=== PATIENT | male | born 1935 | race Caucasian/White ===

== ENCOUNTER 2019-10-24 11:55 | Inpatient (IN) | payer MEDICARE ==
[~2019-10-24] VITALS: Ht 177.8 cm; Wt 109.0 kg
[~2019-10-24 11:55] MED LIST: APIX5TAB PO; HYDROCHLOROTH12.5 MG PO; LEVO150T5 PO; MELA10TA PO; RISP0.5T3 PO; VITAMIN B12 PO
[2019-10-24] MEDS ORDERED: LACTATED RINGERS 1,000 ML IV SCH (12:19)
[2019-10-24] MEDS ORDERED: CHLORHEXIDINE 15 ML UDC MM STA (12:21)
[2019-10-24 12:28] VITALS: BP 127/82
[2019-10-24 12:42] LABS: BASOPHILS # (AUTO) 0.03 x10^3/uL (0-0.1); BASOPHILS % (AUTO) 1 % (0-1); EOSINOPHILS % (AUTO) 1 % (1-7); LYMPHOCYTES # (AUTO) 2.14 x10^3/uL (1-3.4); LYMPHOCYTES % (AUTO) 31 % (22-44); MD NO; MEAN CORPUSCULAR VOLUME 93.8 fL (81-97); MEAN PLATELET VOLUME 8.7 fL (7.4-10.4); MONOCYTES # (AUTO) 0.67 x10^3/uL (0.2-0.8); MONOCYTES % (AUTO) 10 % (2-9); NEUTROPHILS # (AUTO) 3.89 x10^3/uL (1.8-6.8); NEUTROPHILS % (AUTO) 57 % (42-75); PLATELET COUNT 165 x10^3/uL (130-400); RED BLOOD COUNT 4.96 x10^6/uL (4.38-5.82); RED CELL DISTRIBUTION WIDTH 14.9 % (9.4-14.8)
[2019-10-24] MEDS ORDERED: LIDOCAINE-MPF 1%, 2ML ONE (12:43)
[2019-10-24] MEDS ORDERED: CHLORHEXIDINE 15 ML UDC ONE (12:44)
[2019-10-24 12:53] LABS: ALBUMIN 3.8 g/dL (3.4-5.0); ANION GAP 4 mmol/L (5-15); CALCIUM 9.5 mg/dL (8.5-10.1); CHLORIDE 106 mmol/L (98-107)
[2019-10-24 12:57] LABS: ALANINE AMINOTRANSFERASE 22 U/L (12-78); ALKALINE PHOSPHATASE 81 U/L (45-117); BILIRUBIN,TOTAL 0.9 mg/dL (0.2-1.0); TOTAL PROTEIN 7.4 g/dL (6.4-8.2)
[2019-10-24] MEDS ORDERED: LIDOCAINE-MPF 1%, 2ML INFIL ONE (13:00)
[2019-10-24] MEDS ORDERED: CHLORHEXIDINE 15 ML UDC MM ONE (13:30)
[2019-10-24] MEDS ORDERED: HEPARIN 1,000 UNITS/ML, 10ML ONE (14:11)
[2019-10-24] MEDS ORDERED: PAPAVERINE 30 MG/ML, 2ML ONE (14:11)
[2019-10-24] MEDS ORDERED: PROTAMINE SULFATE 10 MG/ML, 5ML ONE (14:11)
[2019-10-24] MEDS ORDERED: BUPIVACAINE/PF-EPI 0.5% 1:200K ONE (14:11)
[2019-10-24] MEDS ORDERED: THROMBIN 20,000 UNIT VIAL TP ONE (14:11)
[2019-10-24] MEDS ORDERED: LIDOCAINE 1%, 20ML ONE (14:12)
[2019-10-24] MEDS ORDERED: ROCURONIUM 10 MG/ML,10ML ONE (14:53)
[2019-10-24] MEDS ORDERED: PROPOFOL 10 MG/ML, 20ML ONE (14:53)
[2019-10-24] MEDS ORDERED: ONDANSETRON 2MG/ML, 2ML ONE (14:53)
[2019-10-24] MEDS ORDERED: SUCCINYLCHOLINE 20 MG/ML, 10ML ONE (14:53)
[2019-10-24] MEDS ORDERED: VASOPRESSIN 20 UNIT/ML, 1ML ONE (14:53)
[2019-10-24] MEDS ORDERED: EPHEDRINE 50 MG/ML, 1ML ONE (14:53)
[2019-10-24] MEDS ORDERED: CEFAZOLIN 1,000 MG ONE (14:53)
[2019-10-24] MEDS ORDERED: BUPIVACAINE/PF-EPI 0.5% 1:200K INFIL ONE (15:25)
[2019-10-24] MEDS ORDERED: HEPARIN 1,000 UNITS/ML, 10ML IV ONE (15:26)
[2019-10-24] MEDS ORDERED: FENTANYL PF 250 MCG/5ML ONE (16:24)
[2019-10-24] MEDS ORDERED: FENTANYL PF 100 MCG/2ML ONE (16:58)
[2019-10-24] MEDS ORDERED: OXYcodone 5 MG/5 ML ORAL.SOL UDC ONE ×2 (16:58→18:16)
[2019-10-24] MEDS ORDERED: ASPIRIN 325 MG TABLET ONE (16:58)
[2019-10-24] MEDS ORDERED: ONDANSETRON 2MG/ML, 2ML IV PRN ×2 (17:00→20:00)
[2019-10-24] MEDS ORDERED: PROMETHAZINE 25 MG/ML, 1ML IV PRN (17:00)
[2019-10-24] MEDS ORDERED: PROMETHAZINE 12.5 MG SUPP PR PRN (17:00)
[2019-10-24] MEDS ORDERED: MEPERIDINE/PF 25MG/ML,1ML IVPush PRN (17:00)
[2019-10-24] MEDS ORDERED: MIDAZOLAM 1 MG/ML, 2ML IV PRN (17:00)
[2019-10-24] MEDS ORDERED: DIAZEPAM 5 MG/ML, 2ML IVPush PRN (17:00)
[2019-10-24] MEDS ORDERED: HALOPERIDOL 5 MG/ML IV PRN (17:00)
[2019-10-24] MEDS ORDERED: LABETALOL 5MG/ML, 20ML IV PRN (17:00)
[2019-10-24] MEDS ORDERED: ONDANSETRON ODT 8 MG PO PRN (17:00)
[2019-10-24] MEDS ORDERED: EPHEDRINE 50 MG/ML, 1ML IVPush PRN (17:00)
[2019-10-24] MEDS ORDERED: ALBUTEROL SULFATE 2.5 MG/3 ML NPPB PRN (17:00)
[2019-10-24] MEDS ORDERED: hydrALAzine 20 MG/ML, 1ML IV PRN ×2 (17:00→20:00)
[2019-10-24] MEDS: FENTANYL PF 100 MCG/2ML IV PRN ×4 (17:00→17:40)
[2019-10-24] MEDS ORDERED: HYDROmorphone 2 MG/ML, 1ML IVPush PRN (17:00)
[2019-10-24] MEDS ORDERED: ACETAMINOPHEN 325 MG TABLET PO PRN ×2 (17:00→20:00)
[2019-10-24] MEDS ORDERED: METOPROLOL 1 MG/ML, 5ML ONE (17:00)
[2019-10-24] MEDS ORDERED: hydrALAzine 20 MG/ML, 1ML ONE (17:07)
[2019-10-24] MEDS ORDERED: METOPROLOL 1 MG/ML, 5ML IV PRN (17:30)
[2019-10-24] MEDS: OXYcodone 5 MG/5 ML ORAL.SOL UDC PO PRN ×2 (17:45→18:19)
[2019-10-24] MEDS ORDERED: METOPROLOL TARTRATE 25 MG TAB PO ONE (18:00)
[2019-10-24] MEDS ORDERED: ASPIRIN 325 MG TABLET PO ONE (18:00)
[2019-10-24] MEDS ORDERED: LABETALOL 5MG/ML, 20ML IVPush PRN (20:00)
[2019-10-24] MEDS ORDERED: HYDROcodone/APAP 5/325 TABLET PO PRN (20:00)
[2019-10-24] MEDS ORDERED: morphine SULFATE 10 MG/ML, 1ML IV PRN (20:00)
[2019-10-24 20:26] VITALS: BP 136/84
[2019-10-24] MEDS: MELATONIN 5 MG TABLET PO SCH (20:35)
[2019-10-24] MEDS: CEFAZOLIN PMX 2GM/50ML 50 ML IVPB SCH (23:01)
[2019-10-25 01:09] VITALS: BP 129/84
[2019-10-25] MEDS: LACTATED RINGERS 1,000 ML IV SCH ×3 (02:47→22:26)
[2019-10-25 03:29] VITALS: BP 150/96
[2019-10-25] MEDS: LEVOTHYROXINE 150 MCG TABLET PO SCH (05:58)
[2019-10-25] MEDS: METOPROLOL TARTRATE 25 MG TAB PO SCH ×2 (05:59→18:30)
[2019-10-25] MEDS: CEFAZOLIN PMX 2GM/50ML 50 ML IVPB SCH (06:33)
[2019-10-25 07:20] VITALS: BP 110/72
[2019-10-25] MEDS: HYDROCHLOROTHIAZIDE 12.5 MG CAPSULE PO SCH (08:37)
[2019-10-25] MEDS: ASPIRIN 325 MG TABLET EC PO SCH (08:37)
[2019-10-25] MEDS: RISPERIDONE 1 MG TABLET PO SCH (08:37)
[2019-10-25] MEDS: CYANOCOBALAMIN 1,000 MCG TABLET PO SCH (08:37)
[2019-10-25 12:55] VITALS: BP 116/80
[2019-10-25] MEDS ORDERED: METO25TA35 PO (13:10)
[2019-10-25 21:05] VITALS: BP 104/53
[2019-10-25] MEDS: MELATONIN 5 MG TABLET PO SCH (22:21)
[2019-10-26 00:16] VITALS: BP 97/64
[2019-10-26] MEDS: LEVOTHYROXINE 150 MCG TABLET PO SCH (05:42)
[2019-10-26] MEDS: METOPROLOL TARTRATE 25 MG TAB PO SCH (05:42)
[2019-10-26] MEDS: RISPERIDONE 1 MG TABLET PO SCH ×2 (07:56→09:00)
[2019-10-26] MEDS: HYDROCHLOROTHIAZIDE 12.5 MG CAPSULE PO SCH ×2 (07:56→09:00)
[2019-10-26] MEDS: CYANOCOBALAMIN 1,000 MCG TABLET PO SCH ×2 (07:56→09:00)
[2019-10-26] MEDS: ASPIRIN 325 MG TABLET EC PO SCH ×2 (07:56→09:00)
[2019-10-26 08:50] VITALS: BP 149/80
[2019-10-26] MEDS: LACTATED RINGERS 1,000 ML IV SCH (09:00)
[2019-10-26 12:00] VITALS: BP 161/90
== END 2019-10-26 13:15 | disposition home or self-care (01) | DRG 38 ==
LOC: ORIP 11:55 → 4NE 19:31
PROVIDERS: ADMIT Surgery; ATTEND Surgery
PROC: 03CM0ZZ Extirpation of Matter from Right External Carotid Artery, Open Approach (ICD-10-PCS; 2019-10-24)
PROC: 03CK0ZZ Extirpation of Matter from Right Internal Carotid Artery, Open Approach (ICD-10-PCS; 2019-10-24)
PROC: 03UM0KZ Supplement Right External Carotid Artery with Nonautologous Tissue Substitute, Open Approach (ICD-10-PCS; 2019-10-24)
PROC: 03UK0KZ Supplement Right Internal Carotid Artery with Nonautologous Tissue Substitute, Open Approach (ICD-10-PCS; 2019-10-24)
PROC: 03CH0ZZ Extirpation of Matter from Right Common Carotid Artery, Open Approach (ICD-10-PCS; principal; 2019-10-24 14:00)
DX: I65.21 Occlusion and stenosis of right carotid artery (principal); I48.20 Chronic atrial fibrillation, unspecified; E66.9 Obesity, unspecified; I10 Essential (primary) hypertension; E03.9 Hypothyroidism, unspecified; Z68.34 Body mass index [BMI] 34.0-34.9, adult
CPT/HCPCS: 36415; 80053; 85025; 86850; 86900; 93005; C1729; G0378; J0690; J1644; J2405; J2704; J2720; J3010; C1768; J0330; J2440; J7120